=== PATIENT | male | born 1950 | race Caucasian/White ===

== ENCOUNTER 2017-01-19 13:11 | Inpatient (IN) | payer OTHER, MEDICARE ==
[~2017-01-19] VITALS: Ht 177.8 cm; Wt 85.1 kg
[2017-02-01] MEDS ORDERED: VITA500T83 PO (15:27)
[2017-02-01] MEDS ORDERED: ASPI-110 PO (15:27)
[2017-02-01] MEDS ORDERED: SIMV40TA PO (15:27)
[2017-02-01] MEDS ORDERED: MULT1TAB PO (15:27)
[2017-02-01] MEDS ORDERED: LISI-515 PO (15:27)
[2017-02-05 05:45] VITALS: BP 147/79; PULSE 59; RESP 20; TEMP 97.7; O2SAT 100
[2017-02-05] MEDS ORDERED: METOPROLOL TARTRATE 25 MG TAB PO PRN (05:45)
[2017-02-05] MEDS ORDERED: LACTATED RINGER'S 1000 ML IV PRN (05:45)
[2017-02-05] MEDS ORDERED: ceFAZolin 2 GM PREMIX 50 ML IV SCH (05:45)
[2017-02-05] MEDS ORDERED: INSULIN HUMAN REGULAR 1,000 UNITS/10 ML VIAL SQ PRN (05:45)
[2017-02-05] MEDS ORDERED: CHLORHEXIDINE GLUCONATE 2 % 1 PACK (2 CLOTHS) TOPICAL PRN (05:45)
[2017-02-05] MEDS ORDERED: VANCOMYCIN 1000 MG/NS 250 ML (for <70 kg) IV SCH ×2 (05:45)
[2017-02-05] MEDS ORDERED: POVIDONE IODINE 7.5% SCRUB 118 ML BOTTLE TOPICAL SCH (05:45)
[2017-02-05] MEDS ORDERED: SODIUM CHLORID 0.9% 500 ML IV PRN (05:45)
[2017-02-05] MEDS ORDERED: POVIDONE IODINE 5% (ANTISEPSIS KIT) 4 APPLICATIONS EACH NARE PRN (05:45)
[2017-02-05] MEDS ORDERED: CHLORHEXIDINE GLUCONATE 4% SOLN 120 ML BTL TOPICAL SCH (05:45)
[2017-02-05] MEDS ORDERED: DEXAMETHASONE SOD PHOS 20 MG/5 ML VIAL IV SCH (06:00)
[2017-02-05] MEDS ORDERED: GENTAMICIN SULFATE 80 MG/2 ML VIAL ONE (06:12)
[2017-02-05] MEDS: SODIUM CHLOR 0.9% 1000 ML INJ 1,000 ML IV SCH ×3 (06:37→22:44)
[2017-02-05] MEDS ORDERED: HYDR-3288 PO (06:39)
[2017-02-05] MEDS ORDERED: ENOX40P SQ (06:40)
[2017-02-05] MEDS ORDERED: ASPI81CH37 CHEW (06:40)
[2017-02-05] MEDS ORDERED: NALOXONE HCL 0.4 MG/ML AMP IV PRN (06:45)
[2017-02-05] MEDS ORDERED: MORPHINE SULFATE 4 MG/ML INJ IV PUSH PRN (06:45)
[2017-02-05] MEDS ORDERED: SODIUM CHLORIDE 0.9% FLUSH 5 ML FLUSH IVF PRN (06:45)
[2017-02-05] MEDS ORDERED: MORPHINE SULFATE 30 MG/30 ML PCA IV SCH (06:45)
[2017-02-05] MEDS ORDERED: ONDANSETRON HCL 4 MG/2 ML VIAL IVP PRN (06:45)
[2017-02-05] MEDS ORDERED: Post-op Orders (for Pharmacy) MISC XX ONE (06:45)
[2017-02-05] MEDS ORDERED: ACETAMINOPHEN/HYDROcodone 325 MG/10 MG TAB PO PRN (06:45)
[2017-02-05] MEDS ORDERED: BISACODYL 10 MG SUPP RECTAL PRN (06:45)
[2017-02-05] MEDS ORDERED: ZOLPIDEM TARTRATE 5 MG TAB PO PRN (06:45)
[2017-02-05] MEDS ORDERED: diphenhydrAMINE HCL 50 MG/ML VIAL IV PRN (06:45)
[2017-02-05] MEDS ORDERED: SODIUM CHLORIDE 0.9% IV SCH (07:00)
[2017-02-05] MEDS ORDERED: EXPAREL PERI-ARTICULAR INJECTION (TOTAL VOL. 60 ML) P-ARTICULR SCH ×2 (07:00)
[2017-02-05] MEDS ORDERED: TRANEXAMIC ACID IV SCH (07:00)
[2017-02-05] MEDS ORDERED: TRANEXAMIC PERI-ARTICULAR 3,000 MG/NS 100 ML P-ARTICULR SCH ×2 (07:00)
[2017-02-05] MEDS ORDERED: MIDAZOLAM HCL 2 MG/2 ML VIAL ONE (08:48)
[2017-02-05] MEDS ORDERED: fentaNYL CITRATE 250 MCG/5 ML AMP ONE (08:48)
[2017-02-05] MEDS ORDERED: *morphine SULFATE 8 MG/ML PERIprocedure ONLY ONE ×2 (08:52→09:07)
[2017-02-05] MEDS: SODIUM CHLORIDE 0.9% FLUSH 5 ML FLUSH IVF SCH ×2 (09:00→19:47)
[2017-02-05] MEDS ORDERED: DO NOT ADM ANY ANTICOAGULANT DRUGS PRN (09:00)
[2017-02-05] MEDS: LISINOPRIL 20 MG TAB PO SCH (09:00)
--- NOTE | 2017-02-05 10:04 | RADRPT ---
EXAM DATE/TIME: 02/05/2017 08:58 [facility] COMPARISON: No previous studies available for comparison. INDICATIONS : Post op right hip arthroplasty. MEDICAL HISTORY : None. SURGICAL HISTORY : None. ENCOUNTER: Initial ACUITY: 1 day PAIN SCORE: 4/10 LOCATION: Right hip FINDINGS: Total hip arthroplasty is in place. The femoral and acetabular components appear intact. There are no signs of loosening or fracture. CONCLUSION: Intact total hip prosthesis for technique. Meaghan Madsen MD on February 05, 2017 at 10:02 Board Certified Radiologist. This report was verified electronically.
[2017-02-05] MEDS: ACETAMINOPHEN/HYDROcodone 325 MG/10 MG TAB PO PRN ×4 (10:08→21:54)
--- NOTE | 2017-02-05 10:30 | RADRPT ---
EXAM DATE/TIME: 02/05/2017 07:04 [facility] COMPARISON: HIP RIGHT (AP&LAT 2/3VWS) W AP PELVIS, February 05, 2017, 8:58. INDICATIONS : Right total hip replacement. MEDICAL HISTORY : Unobtainable. SURGICAL HISTORY : Unobtainable. ENCOUNTER: Initial ACUITY: 1 day PAIN SCORE: Non-responsive. LOCATION: Right hip FINDINGS: Total hip arthroplasty is in place. The femoral and acetabular components appear intact. The alignme nt is anatomical. CONCLUSION: Intact total hip prosthesis for technique. Meaghan Madsen MD on February 05, 2017 at 10:27 Board Certified Radiologist. This report was verified electronically.
[2017-02-05 11:37] VITALS: BP 147/69; PULSE 70; RESP 18; TEMP 96.7; O2SAT 98
[2017-02-05] MEDS ORDERED: NEOSTIGMINE 3 MG/3 ML SYR IV ONE (12:00)
[2017-02-05] MEDS ORDERED: PHENYLEPH/NS 1000 MCG/10 ML SYR IV ONE (12:00)
[2017-02-05] MEDS ORDERED: ePHEDrine/NS 25 MG/5 ML SYR IV ONE (12:00)
[2017-02-05] MEDS ORDERED: PROPOFOL 200 MG/20 ML AMP IV ONE (12:00)
[2017-02-05] MEDS ORDERED: ONDANSETRON HCL 4 MG/2 ML VIAL IV PUSH ONE (12:00)
--- NOTE | 2017-02-05 13:50 | PD.CONS ---
[facility] By [facility] Care Physician Casper Dick M.D. Diagnoses: History of Present Illness Mr. Huston is a 66-year-old male. He is here after having an elective right hip replacement surgery. He is doing well postop when seen. Chronic medical conditions include osteoarthritis, hypertension and hyperlipidemia. She is ready been out of bed and walking before I am seeing him. No acute complaints when seen. Pain is well controlled. No nausea or vomiting or diarrhea. No fever. Past Family Social History Allergies: Coded Allergies: No Known Allergies (Unverified , 02/05/17) Past Medical History Hypertension Hyperlipidemia Past Surgical History Left rotator cuff surgery Reported Medications Reported Meds & Active Scripts Active Aspirin Low Dose (Aspirin) 81 Mg Chew 81 Mg CHEW BID Lovenox Inj (Enoxaparin Sodium) 40 Mg/0.4 Ml Syr 40 Mg SQ DAILY [place] (Hydrocodone-Acetaminophen) 7.5-325 mg Tab 1-2 Tab PO Q6H PRN Reported Aspirin 81 (Aspirin) 81 Mg Tabdr 81 Mg PO DAILY Centrum Silver Adult 50+ (Multiple Vitamins W/ Minerals) 1 Tab Tab 1 Tab PO DAILY Simvastatin 40 Mg Tab 40 Mg PO HS Lisinopril 20 Mg Tab 20 Mg PO DAILY Active Ordered Medications Administered Medications Medications (Trade) Dose Ordered Sig/Elizabeth Route PRN Reason Start Time Stop Time Status Last Admin Dose Admin Lactated Ringer's (Lr 1000 ml Inj) 1,000 ml @ 30 mls/hr Q24H PRN IV SEE LABEL COMMENTS 02/05/17 05:45 02/08/17 05:44 02/05/17 05:45 Povidone Iodine 1 applic 1 applic ONCE TOPICAL 02/05/17 05:45 02/08/17 05:44 02/05/17 05:45 Cefazolin Sodium/ Sodium Chloride (Ancef Inj/NS Inj) 100 ml @ 200 mls/hr Q6H IV 02/05/17 10:00 02/05/17 22:29 02/05/17 09:44 Acetaminophen/ Hydrocodone Bitart ([place] 10-325 Mg) 1 tab Q4H PRN PO PAIN LESS THAN 5 ON SCALE 02/05/17 06:45 02/05/17 10:08 Family History No chronic conditions in the family Social History No tobacco abuse No drug abuse One drink per day of alcohol Physical Exam Vital Signs Vital Signs Date Time Temp Pulse Resp B/P Pulse Ox O2 Delivery O2 Flow Rate FiO2 02/05/17 11:37 96.7 70 18 147/69 98 02/05/17 09:44 97.7 72 17 138/62 99 Nasal Cannula 2 02/05/17 09:30 51 17 146/66 100 Nasal Cannula 2 02/05/17 09:15 51 17 146/66 100 Nasal Cannula 2 02/05/17 09:00 64 15 152/67 99 Nasal Cannula 2 02/05/17 08:43 97.6 63 15 135/63 100 Nasal Cannula 2 02/05/17 05:45 97.7 59 20 147/79 100 Physical Exam GENERAL: NAD, A&Ox3 HEAD: Normocephalic. NECK: Supple, trachea midline. No lymphadenopathy. EYES: No scleral icterus. No injection or drainage. CARDIOVASCULAR: Regular rate and rhythm without murmurs, gallops, or rubs. RESPIRATORY: Breath sounds equal bilaterally. No accessory muscle use. GASTROINTESTINAL: Abdomen soft, non-tender, nondistended. MUSCULOSKELETAL: No cyanosis, or edema. And just wound on right hip SKIN: Warm and dry. NEURO: No focal neurological deficitis. Laboratory Laboratory Tests Test 02/05/17 05:52 Blood Type AB POSITIVE Antibody Screen NEGATIVE Blood Bank Comment Imaging Last Impressions Hip and Pelvis X-Ray 02/05/17 0000 Signed Impressions: Service Date/Time: Sunday, February 05, 2017 08:58 - CONCLUSION: Intact total hip prosthesis for technique. Meaghan Madsen MD Hip X-Ray 02/05/17 0000 Signed Impressions: Service Date/Time: Sunday, February 05, 2017 07:04 - CONCLUSION: Intact total hip prosthesis for technique. Meaghan Madsen MD Assessment and Plan Problem List: (1) Primary localized osteoarthrosis, pelvic region and thigh ICD Code: M16.10 Status: Acute Assessment and Plan Assessment and plan 66-year-old male postop for right hip replacement surgery. Status post right hip replacement surgery Orthopedics following Continue PT Continue as needed pain treatments Monitor for improvement CBC in a.m. Hypertension Presently stable Follow blood pressures Hyperlipidemia No change to baseline treatment planned Follows in outpatient DVT prophylaxis Lovenox Discharge planning Patient had anterior approach if CBC is stable tomorrow morning we'll recommend discharge at time of or the clearance. Junior Dorman MD Feb 05, 2017 1:50 pm
[2017-02-05] MEDS ORDERED: PCA - TOTAL MG MORPHINE DELIVERED PER SHIFT SCH (14:00)
[2017-02-05 15:11] VITALS: BP 131/69; PULSE 88; RESP 17; TEMP 97.7; O2SAT 97
[2017-02-05 16:27] VITALS: O2SAT 97
[2017-02-05 19:53] VITALS: BP 121/65; PULSE 87; RESP 18; TEMP 98.5; O2SAT 95
[2017-02-05 23:09] VITALS: BP 109/66; PULSE 75; RESP 18; TEMP 97.8; O2SAT 96
[2017-02-06 04:24] VITALS: BP 104/66; PULSE 67; RESP 18; TEMP 97.3; O2SAT 95
[2017-02-06] MEDS: ACETAMINOPHEN/HYDROcodone 325 MG/10 MG TAB PO PRN (06:16)
[2017-02-06 07:42] VITALS: BP 129/58; PULSE 69; RESP 16; TEMP 97.1; O2SAT 97
[2017-02-06 07:54] LABS: HEMATOCRIT 35.8 % (39.0-51.0); MEAN CELL VOLUME 93.2 FL (80.0-100.0); MEAN CORPUSCULAR HEMOGLOBIN 31.7 PG (27.0-34.0); PLATELET COUNT 247 TH/MM3 (150-450); RED BLOOD COUNT 3.84 MIL/MM3 (4.50-5.90); RED CELL DISTRIBUTION WIDTH 13.6 % (11.6-17.2); REVIEW FLAG FINAL; WHITE BLOOD COUNT 10.3 TH/MM3 (4.0-11.0)
[2017-02-06] MEDS ORDERED: ENOXAPARIN SODIUM 40 MG/0.4 ML SYRINGE SQ SCH (08:00)
--- NOTE | 2017-02-06 08:18 | PD.ORT.PN ---
Subjective Post Op Day #: 1 Subjective Remarks doing well. working with PT yesterday without significant pain. Objective Vitals Vital Signs Date Time Temp Pulse Resp B/P Pulse Ox O2 Delivery O2 Flow Rate FiO2 02/06/17 07:42 97.1 69 16 129/58 97 02/06/17 04:24 97.3 67 18 104/66 95 02/05/17 23:09 97.8 75 18 109/66 96 02/05/17 19:53 98.5 87 18 121/65 95 02/05/17 16:27 97 21 02/05/17 15:11 97.7 88 17 131/69 97 02/05/17 11:37 96.7 70 18 147/69 98 02/05/17 09:44 97.7 72 17 138/62 99 Nasal Cannula 2 02/05/17 09:30 51 17 146/66 100 Nasal Cannula 2 02/05/17 09:15 51 17 146/66 100 Nasal Cannula 2 02/05/17 09:00 64 15 152/67 99 Nasal Cannula 2 02/05/17 08:43 97.6 63 15 135/63 100 Nasal Cannula 2 I/O 02/05/17 02/05/17 02/05/17 02/06/17 02/06/17 02/06/17 06:59 14:59 22:59 06:59 14:59 22:59 Intake Total 1000 ml 360 ml 360 ml Output Total 950 ml 615 ml 500 ml Balance 50 ml -255 ml -140 ml Intake Oral 360 ml 360 ml IV Total 100 ml Other 900 ml Output Urine Total 450 ml 615 ml 500 ml Estimated Blood Loss 500 ml # Voids 1 1 # Bowel Movements 0 0 Result Diagram: 02/06/17 0655 Objective Remarks in bed, nad incision no erythema, no drainage neg homans nvi Assessment & Plan Ortho Post Op Day #: 1 Problem List: Assessment and Plan s/p R RICH wbat daily dressing changes lovenox d/c planning home with [facility] and pt - cleared today if does well in PT rx in chart f/up dr. veronica 2 weeks Marcelino Poole Feb 06, 2017 08:18
[2017-02-06 08:19] LABS: BICARBONATE 24.8 MEQ/L (21.0-32.0)
--- NOTE | 2017-02-06 08:20 | HHI.FF ---
Face to Face Verification Diagnosis: (1) Primary localized osteoarthrosis, pelvic region and thigh Physical Therapy Gait training, Safety evaluation, Transfer training, bed to chair Hip: Total hip, Protocol: Right Right LE Weight Bearing: WB as tolerated Nursing RN: 3 days/week x 2 weeks Nursing: Kika teaching, Dressing changes Dressing Changes: Daily dressing change I have seen patient Jordan Aponte on 02/06/17. My clinical findings support the need for the requested home health care services because: Limited ability to care for self High risk of falls I certify that my clinical findings support that this patient is homebound because: Post-op weakness Unsteady gait/balance Marcelino Poole Feb 06, 2017 08:20
--- NOTE | 2017-02-06 08:20 | HHI.DCPOC ---
Discharge Care Plan Diagnosis: (1) Primary localized osteoarthrosis, pelvic region and thigh Your Health Problems Are: Difficulty with ADL Goals to Promote Your Health * To prevent worsening of your condition and complications * To maintain your health at the optimal level Directions to Meet Your Goals Take your medications as prescribed Follow your dietary instruction Follow activity as directed Keep your appointments as scheduled Take your immunizations and boosters as scheduled If your symptoms worsen call your PCP, if no PCP go to Urgent Care Center or Emergency Room Smoking is Dangerous to Your Health. Avoid second hand smoke Call the 24-hour hour crisis hotline for domestic abuse at Marcelino Poole Feb 06, 2017 08:20
[2017-02-06] MEDS: LISINOPRIL 20 MG TAB PO SCH (08:22)
[2017-02-06] MEDS: SODIUM CHLORIDE 0.9% FLUSH 5 ML FLUSH IVF SCH (08:24)
--- NOTE | 2017-02-06 09:50 | MP ---
cc: TERRY GARCIA M.D. DATE OF SURGERY 02/05/2017 PREOPERATIVE DIAGNOSIS Right hip osteoarthritis POSTOPERATIVE DIAGNOSIS Right hip osteoarthritis PROCEDURE Right total hip arthroplasty SURGEON Dr. Terry Garcia RADIATOR MECHANIC ROD Mcdonald ANESTHESIA General ESTIMATED BLOOD LOSS 400 cc COMPLICATIONS None IMPLANTS USED DePuy Corail size 12 high offset femoral stem, size 52 solid pinnacle Gription cup, size 36 mm ceramic head, +8.5 neck, size 36-mm neutral highly cross-linked polyethylene liner. JUSTIFICATION This patient is a 66-year-old male with a history of severe end-stage osteoarthritis involving the right hip. He has severe disabling pain with standing, walking and ambulation and weight-bearing activities. He has pain at rest. He has failed greater than three months of nonoperative conservative treatment to include medication therapy, injections, ambulatory assisted aids, home exercise program, activity modification. The patient is not overweight. X-rays of the right hip reveal severe end-stage osteoarthritis with [id number] joint space narrowing, subchondral sclerosis, subchondral cyst osteophyte formation and subluxation. The patient counseled as to the risks, benefits and alternatives to a total hip arthroplasty. The risks were discussed which include, but not limited to anesthesia, bleeding, infection, damage to nerves, blood vessels, pain, stiffness, failure of component, leg length discrepancies, dislocations, blood clots, pulmonary embolism, and even . The patient's pain is severe. He favored the benefits over the risks and did wish to proceed with surgery. PROCEDURE IN DETAIL A written consent was obtained. The patient identified by name, taken to the operating room, placed supine on the operating room table. General anesthesia was administered as well two grams of IV Ancef and one gram of IV vancomycin. The right and left feet were placed in the padded traction boots. The right hip and right lower prepped and draped using Isopropyl alcohol, Hibiclens solution and Chloraprep solution. After a time-out was performed, a longitudinal incision was made over the anterolateral aspect of the right hip. The fascial layer was incised. Dissection was carried over the tensor fascia yvon beneath rectus femoris to allow exposure of the anterior hip capsule. A capsulotomy incision was performed. An oscillating saw was used to perform a femoral neck cut. The osteoarthritic femoral head/neck component was removed. A 10 blade scalpel was used to excise the labrum. Sequential reaming began at a size 47 and was carried through to size 52. Subsequently, a solid [place] Gription cup was implanted in approximately 45 degrees of abduction, 10 degrees of anteversion. There was good purchase and fixation after insertion of the cup. A screw hole eliminator was placed followed by a neutral liner. The liner was impacted in place and tested for stability. Attention was turned to the femur where the leg was externally rotated, extended and adduction. The capsule was released off the undersurface of the greater trochanter to allow for elevation and lateralization of the femur. A box cutting osteotome was used to gain entrance into the intramedullary canal anterior, followed by canal finders and sequential broaching carried through to a size 12, followed by a calcar planer. Trial head and neck combinations were evaluated and final components implanted with the current implants. The leg could achieve external rotation at 70 degrees and extension all the way down to the ground without evidence of anterior instability. Soft tissue tension felt appropriate and fluoroscopic imaging showed appropriate implantation of components. The surgical wounds were thoroughly irrigated with a sterile saline solution. The fascial layer was closed with #1 Vicryl suture. The subcutaneous layer was closed with 2-0 Vicryl suture and skin was closed with Dermabond. Sterile dressing applied. The patient tolerated the procedure well with no intraoperative complications noted. Anup Poole, physician assistant track and field coach certified, was present during the entire procedure to include patient positioning and the procedure itself. The medical necessity of a physician assistant track and field coach was indicated in this case due to the complexity of the procedure. He assisted with appropriate manipulation of the leg and also retraction of muscle, tendon, bone and neurovascular structures. He assisted with preparation of the bone and also implantation of the prosthetic replacement. MD JIMMIE Petersen/JULIA /8:25 AM /9:38 AM
[2017-02-06 11:50] VITALS: O2SAT 100
[2017-02-06 12:00] VITALS: BP 117/56; PULSE 73; RESP 17; TEMP 96.5; O2SAT 96
--- NOTE | 2017-02-06 14:04 | HHI.PR ---
Objective Vitals Vital Signs Date Time Temp Pulse Resp B/P Pulse Ox O2 Delivery O2 Flow Rate FiO2 02/06/17 12:00 96.5 73 17 117/56 96 02/06/17 11:50 100 21 02/06/17 07:42 97.1 69 16 129/58 97 02/06/17 04:24 97.3 67 18 104/66 95 02/05/17 23:09 97.8 75 18 109/66 96 02/05/17 19:53 98.5 87 18 121/65 95 02/05/17 16:27 97 21 02/05/17 15:11 97.7 88 17 131/69 97 I/O 02/05/17 02/05/17 02/05/17 02/06/17 02/06/17 02/06/17 07:00 15:00 23:00 07:00 15:00 23:00 Intake Total 1000 ml 360 ml 360 ml Output Total 950 ml 615 ml 500 ml Balance 50 ml -255 ml -140 ml Intake Oral 360 ml 360 ml IV Total 100 ml Other 900 ml Output Urine Total 450 ml 615 ml 500 ml Estimated Blood Loss 500 ml # Voids 1 1 # Bowel Movements 0 0 Result Diagram: 02/06/17 0655 02/06/17 0655 A/P Problem List: (1) Primary localized osteoarthrosis, pelvic region and thigh ICD Code: M16.10 Status: Acute Hua Valencia MD Feb 06, 2017 14:04
[2017-02-06] MEDS ORDERED: DOCUSATE SODIUM 100 MG CAP PO SCH (21:00)
[2017-02-06] MEDS ORDERED: MULTIVITAMINS/MINERALS THERAPEUTIC TAB PO SCH (21:00)
== END 2017-02-06 15:22 | disposition home health service (06) | DRG 470 ==
LOC: HSDI 02-05 05:09 → N06A 02-05 09:47
PROVIDERS: ADMIT Orthopaedic Surgery Sports Medicine; ATTEND Orthopaedic Surgery Sports Medicine
PROC: 0SR904A Replacement of Right Hip Joint with Ceramic on Polyethylene Synthetic Substitute, Uncemented, Open Approach (ICD-10-PCS; principal; 2017-02-05 06:38)
DX: M16.11 Unilateral primary osteoarthritis, right hip (principal); I10 Essential (primary) hypertension; E78.5 Hyperlipidemia, unspecified
CPT/HCPCS: 73502; 76000; 80048; 85027; 86850; 86900; 86901; 94150; C1776; C9290; J0690; J1100; J1580; J1650; J2250; J2270; J2370; J2405; J2710; J3010; J3370; J7050; J7120